=== PATIENT | male | born 1985 | race Caucasian/White ===

== ENCOUNTER 2021-01-24 09:07 | Emergency (ER) | payer OTHER ==
[~2021-01-24] VITALS: Ht 177.8 cm; Wt 71.4 kg
[2021-01-24 09:44] VITALS: BP 151/88
[2021-01-24 09:56] LABS: BASOPHILS % (AUTO) 0.5 % (0.0-2.0); EOSINOPHILS % (AUTO) 0.7 % (1.0-6.0); HEMATOCRIT 48.1 % (41-53); HEMOGLOBIN 15.9 g/dL (13.5-17.5); LYMPHOCYTES # (AUTO) 1.7 K/uL (1.0-4.8); LYMPHOCYTES % (AUTO) 14.8 % (22.0-44.0); MEAN CORPUSCULAR HEMOGLOBIN 30.3 pg (26.0-34.0); MEAN CORPUSCULAR HGB CONC 33.1 G/dL (31.0-37.0); MEAN CORPUSCULAR VOLUME 92 fL (80-100); MONOCYTES # (AUTO) 1.1 K/uL (0.1-1.0); MONOCYTES % (AUTO) 9.3 % (2.0-9.0); NEUTROPHILS # (AUTO) 8.5 K/uL (1.8-7.7); NEUTROPHILS % (AUTO) 74.7 % (40.0-70.0); PLATELET COUNT (AUTO) 279 K/uL (150-450); RED BLOOD CELL COUNT(AUTO) 5.25 MIL/uL (4.50-5.90); RED CELL DISTRIBUTION WIDTH 13.5 % (11.5-14.5)
[2021-01-24 10:04] LABS: ANION GAP 10 mmol/L (8-16); CARBON DIOXIDE 27 mmol/L (22-29); CHLORIDE 102 mmol/L (98-107); CREATININE 1.06 mg/dL (0.60-1.30); GLOMERULAR FILTR. RATE CALC > 60 mL/min (>60); GLUCOSE,RANDOM 105 mg/dL (70-110); POTASSIUM 3.7 mmol/L (3.5-5.1); SODIUM SERUM 139 mmol/L (136-145); UREA NITROGEN, BLOOD 16 mg/dL (7-18)
[2021-01-24 10:10] LABS: ALANINE AMINOTRANSFERASE 43 U/L (12-78); ALBUMIN 4.3 g/dL (3.4-5.0); ALKALINE PHOSPHATASE 58 U/L (46-116); ASPARTATE AMINOTRANSFERASE 95 U/L (15-37); BILIRUBIN,TOTAL 0.7 mg/dL (0.1-1.0); TOTAL PROTEIN, SERUM 7.8 g/dL (6.4-8.2)
[2021-01-24] MEDS ORDERED: LORazepam 1 MG TABLET PO ONE (11:30)
[2021-01-24 12:45] LABS: AMPHET/METH SCREEN,URINE POSITIVE (NEGATIVE); BARBITURATE SCREEN, URINE NEGATIVE (NEGATIVE); BENZODIAZEPINES SCREEN,URINE NEGATIVE (NEGATIVE); CANNABINOID SCREEN,URINE POSITIVE (NEGATIVE); COCAINE SCREEN,URINE NEGATIVE (NEGATIVE); METHADONE SCREEN, URINE NEGATIVE (NEGATIVE); OPIATE SCREEN,URINE NEGATIVE (NEGATIVE); PHENCYCLIDINE SCREEN,URINE NEGATIVE (NEGATIVE)
== END 2021-01-24 13:32 | disposition home or self-care (01) ==
LOC: EMS 09:10
DX: S30.0XXA Contusion of lower back and pelvis, initial encounter (principal); F25.9 Schizoaffective disorder, unspecified; F12.90 Cannabis use, unspecified, uncomplicated; Z79.899 Other long term (current) drug therapy; W51.XXXA Accidental striking against or bumped into by another person, initial encounter; Y93.89 Activity, other specified; Y92.89 Other specified places as the place of occurrence of the external cause; Y99.8 Other external cause status
CPT/HCPCS: 36415; 80053; 80307; 85025; 99285; G0480

== ENCOUNTER 2021-01-25 14:14 | Inpatient (IN) | payer MEDICAID, OTHER ==
[~2021-01-25] VITALS: Ht 177.8 cm; Wt 79.5 kg
[2021-01-25] MEDS ORDERED: LORazepam 2 MG/ML VIAL IM ONE (14:45)
[2021-01-25] MEDS ORDERED: DiphenhydrAMINE HCL 50 MG/ML VIAL IM ONE (14:45)
[2021-01-25] MEDS ORDERED: HALOPERIDOL LACTATE 5 MG/ML VIAL IM ONE (14:45)
[2021-01-25 15:28] LABS: COVID AG,FIA SOURCE NASOPHARYNGEAL
[2021-01-25 17:45] LABS: BASOPHILS % (AUTO) 0.3 % (0.0-2.0); EOSINOPHILS % (AUTO) 0.3 % (1.0-6.0); HEMOGLOBIN 14.1 g/dL (13.5-17.5); LYMPHOCYTES # (AUTO) 2.1 K/uL (1.0-4.8); LYMPHOCYTES % (AUTO) 18.5 % (22.0-44.0); MEAN CORPUSCULAR HEMOGLOBIN 30.6 pg (26.0-34.0); MEAN CORPUSCULAR HGB CONC 33.6 G/dL (31.0-37.0); MEAN CORPUSCULAR VOLUME 91 fL (80-100); MONOCYTES # (AUTO) 1.1 K/uL (0.1-1.0); NEUTROPHILS % (AUTO) 70.9 % (40.0-70.0); PLATELET COUNT (AUTO) 249 K/uL (150-450); RED CELL DISTRIBUTION WIDTH 13.4 % (11.5-14.5)
[2021-01-25 18:11] LABS: ANION GAP 12 mmol/L (8-16); CALCIUM, TOTAL 8.6 mg/dL (8.8-10.5); CARBON DIOXIDE 25 mmol/L (22-29); CHLORIDE 105 mmol/L (98-107); CREATININE 1.11 mg/dL (0.60-1.30); GLOMERULAR FILTR. RATE CALC > 60 mL/min (>60); GLUCOSE,RANDOM 74 mg/dL (70-110); POTASSIUM 3.2 mmol/L (3.5-5.1); SODIUM SERUM 142 mmol/L (136-145); UREA NITROGEN, BLOOD 10 mg/dL (7-18)
[2021-01-25 18:16] LABS: ALANINE AMINOTRANSFERASE 64 U/L (12-78); ALBUMIN 3.7 g/dL (3.4-5.0); ALKALINE PHOSPHATASE 58 U/L (46-116); ASPARTATE AMINOTRANSFERASE 164 U/L (15-37); BILIRUBIN,TOTAL 0.7 mg/dL (0.1-1.0); TOTAL PROTEIN, SERUM 6.7 g/dL (6.4-8.2)
[2021-01-25] MEDS ORDERED: ZOLPIDEM TARTRATE 10 MG TABLET PO PRN (19:15)
[2021-01-25 22:19] VITALS: BP 110/67
[2021-01-26 06:08] VITALS: BP 118/75
[2021-01-26] MEDS: LORazepam 2 MG TABLET PO PRN (08:32)
[2021-01-26 08:33] VITALS: BP 119/67
[2021-01-26 08:38] LABS: CHOL/HDL RATIO 3.1 (4.2-7.3)
[2021-01-26] MEDS ORDERED: POTASSIUM CHLORIDE 20 MEQ ER TABLET PO ONE (11:15)
[2021-01-26] MEDS ORDERED: BACITRACIN 28 GM OINTMENT TP PRN (11:15)
[2021-01-26] MEDS ORDERED: MAGNESIUM HYDROXIDE SUSPENSION 30 ML UDCUP PO PRN (11:15)
[2021-01-26] MEDS ORDERED: PETROLATUM,WHITE 28 GM JELLY TP PRN (11:15)
[2021-01-26] MEDS ORDERED: MAG HYDROX/AL HYDROX/SIMETH ES 30 ML SUSPENSION UDCUP PO PRN (11:15)
[2021-01-26] MEDS ORDERED: ALBUTEROL SULFATE HFA 90 MCG/PUFF 8 GM INHALER IH PRN (11:15)
[2021-01-26] MEDS ORDERED: ONDANSETRON HCL 4 MG TABLET PO PRN (11:15)
[2021-01-26] MEDS ORDERED: ACETAMINOPHEN 325 MG TABLET PO PRN (11:15)
[2021-01-26] MEDS ORDERED: LOPERAMIDE HCL 2 MG CAPSULE PO PRN (11:15)
[2021-01-26] MEDS ORDERED: BENZOCAINE/MENTHOL LOZENGE PO PRN (11:15)
[2021-01-26] MEDS ORDERED: OMEPRAZOLE 20 MG CAPSULE PO PRN (11:15)
[2021-01-26] MEDS ORDERED: IBUPROFEN 600 MG TABLET PO PRN (11:15)
[2021-01-26] MEDS ORDERED: CloNIDine HCL 0.1 MG TABLET PO PRN (11:15)
[2021-01-26] MEDS ORDERED: DOCUSATE SODIUM 100 MG CAPSULE PO PRN (11:15)
[2021-01-26 12:44] VITALS: BP 119/67
[2021-01-26] MEDS ORDERED: INFLUENZA VIRUS VACCINE QVS 2021-22 (6MO+)/PF 60 MCG/0.5 ML SYRINGE IM. ONE (15:00)
[2021-01-26 16:09] VITALS: BP 105/70
[2021-01-26] MEDS: RisperiDONE 3 MG TABLET PO SCH (17:55)
[2021-01-27 00:08] VITALS: BP 130/86
[2021-01-27] MEDS: LORazepam 2 MG TABLET PO PRN ×2 (08:38→16:45)
[2021-01-27] MEDS: RisperiDONE 3 MG TABLET PO SCH ×2 (08:38→16:45)
[2021-01-27 16:07] VITALS: BP 140/83
[2021-01-27] MEDS: HALOPERIDOL 5 MG TABLET PO PRN (16:45)
[2021-01-28 01:19] VITALS: BP 103/64
[2021-01-28 08:31] VITALS: BP 128/74
[2021-01-28] MEDS: RisperiDONE 3 MG TABLET PO SCH (09:04)
[2021-01-28] MEDS: LORazepam 2 MG TABLET PO PRN (09:41)
[2021-01-28] MEDS: HALOPERIDOL 5 MG TABLET PO PRN (09:41)
== END 2021-01-28 14:35 | disposition home or self-care (01) | DRG 750 ==
LOC: EMS 14:16 → B3A 20:00
PROVIDERS: ADMIT Psychiatry & Neurology Psychiatry; ATTEND Psychiatry & Neurology Psychiatry
DX: F25.9 Schizoaffective disorder, unspecified (principal); E87.6 Hypokalemia; Z20.822 Contact with and (suspected) exposure to COVID-19; F19.10 Other psychoactive substance abuse, uncomplicated; G47.00 Insomnia, unspecified; K59.00 Constipation, unspecified; Z71.6 Tobacco abuse counseling; Z72.0 Tobacco use
CPT/HCPCS: 80053; 80061; 84132; 85025; 90686; 99291; G0480; J1200; J1630; J2060